=== PATIENT | male | born 1945 | race Caucasian/White ===

== ENCOUNTER 2017-08-20 08:44 | Emergency (ER) | payer MEDICARE, SELFPAY ==
[2017-08-20 09:11] VITALS: BP 161/102; PULSE 98; RESP 16; TEMP 36.6; O2SAT 100
--- NOTE | 2017-08-20 09:19 | DI.RAD.S_ITS ---
PROCEDURE: XR ACUTE ABDOMEN SERIES INDICATIONS: Abdominal pain, decreased BM x2 weeks TECHNIQUE: One view chest and two views of the abdomen were acquired. COMPARISON: None. FINDINGS: Surgical changes and devices: None. Chest: Lungs show mild horizontal atelectasis or scarring at the left base. Heart size is normal. Tortuous aorta. No pleural effusions. No pneumoperitoneum. Abdomen: Bowel gas pattern shows considerable fecal loading in the colon No suspicious calcifications. Visualized solid organ contours appear normal. Bones: No suspicious bony lesions. Small metallic foreign body overlies the right upper abdomen wall. IMPRESSION: 1. Mild atelectasis or scarring left lung base. 2. No bowel obstruction or free air. 3. Probable constipation. Dictated by: Keegan Huntley M.D. on 08/20/2017 at 9:57 Approved by: Keegan Huntley M.D. on 08/20/2017 at 9:59
[2017-08-20 10:15] LABS: Add Manual Diff / Slide Review NO; Basophils Percent Auto 0.6 % (0-2); Eosinophils Percent Auto 0.1 % (2-4); Hematocrit 40.6 % (41-53); Hemoglobin 14.1 g/dL (13.5-17.5); Mean Corpuscular HGB Conc 34.7 % (30-36); Mean Corpuscular Hemoglobin 29.3 PG (26-34); Mean Corpuscular Volume 84.6 fL (80-100); Monocytes Percent Auto 6.6 % (3-14); Neutrophils Absolute Auto 8400 /uL (3000-5900); Neutrophils Percent Auto 85.7 % (50-75); Platelet Count 270 X10^3/uL (150-400); Red Cell Distribution Width 14.4 % (11.6-14.8); White Blood Cell Count 9.8 X10^3/uL (4.5-11.0)
[2017-08-20] MEDS: SODIUM CHLORIDE 0.9% 1,000 ML 150 ML IV (10:19)
--- NOTE | 2017-08-20 10:19 | ED_ITS ---
HPI - Abdominal Pain General Chief Complaint: Abdominal Pain Stated Complaint: 'POSSIBLE BOWEL OBSTRUCTION' Time Seen by Provider: 08/20/17 08:58 Source: patient Mode of arrival: ambulatory Limitations: no limitations History of Present Illness HPI narrative: Patient presents to the emergency department today with a chief complaint of 2 weeks with decreased bowel movements if any at all. He is still passing gas. He admits to nausea and decreased appetite been no persistent vomiting. He admits to crampy abdominal pain and some radiation to his back. He does complain of ongoing back pain for quite some time and denies any specific underlying diagnosis complaint: abdominal pain Onset (ago): week(s) Pain Consistency: constant Location: diffuse Quality: cramping and aching Relieving factors: nothing Exacerbating factors: nothing Associated symptoms: nausea and constipation Related Data Home Medications Medication Instructions Recorded Confirmed Fleet Enema 08/20/17 cyclobenzaprine 10 mg PO TID PRN 08/20/17 08/20/17 prednisone 10 mg PO DAILY 08/20/17 08/20/17 Allergies Allergy/AdvReac Type Severity Reaction Status Date / Time No Known Drug Allergies Allergy Verified 08/20/17 09:15 Review of Systems Review of Systems All systems reviewed & are unremarkable except as noted in HPI and below Constitutional Denies chills, Denies fever(s), Denies lethargy and Denies weakness Eyes Denies change in vision, Denies eye discharge, Denies irritation and Denies loss of vision ENT Ears, Nose, Mouth, and Throat: Denies change in voice, Denies neck pain and Denies sore throat Cardiovascular Denies chest pain, Denies irregular heart rhythm, Denies lightheadedness, Denies palpitations, Denies dyspnea, Denies dyspnea on exertion and Denies orthopnea Respiratory Denies cough, Denies dyspnea, Denies dyspnea on exertion and Denies wheezing Gastrointestinal Gastrointestinal: Reports abdominal pain, Reports bloating, Denies change in bowel habits, Reports constipation, Denies diarrhea, Denies nausea and Denies vomiting Genitourinary Denies hematuria, Denies flank pain, Denies urinary incontinence and Denies urinary urgency Musculoskeletal Reports back pain and Denies neck pain Integumentary/Breasts Denies pruritus, Denies erythema, Denies rash and Denies wounds Neurologic Denies confusion, Denies loss of vision and Denies weakness Psychiatric Denies anxiety, Denies confusion, Denies depression, Denies homicidal ideation and Denies suicidal ideation Endocrine Denies palpitations Hematologic/Lymphatic Denies easy bruising Allergic/Immunologic Denies wheezing PFSH Surgical History H/O hernia repair (Acute) Hx of appendectomy (Acute) Hx of laminectomy (Acute) Social History Smoking Status: Never smoker Exam Initial Vital Signs Initial Vital Signs: Vital Signs Temperature 97.9 F 08/20/17 09:11 Pulse Rate 98 H 08/20/17 09:11 Respiratory Rate 16 08/20/17 09:11 Blood Pressure 161/102 H 08/20/17 09:11 Pulse Oximetry 100 08/20/17 09:11 Const General: cooperative and well developed Nutritional Appearance: well nourished Orientation: alert, awake, oriented x3 and not confused HENMT Head: normocephalic and atraumatic Ears: external ears normal and TM's normal bilaterally Nose: external nose normal and No nasal discharge Face and sinus: sinuses nontender, face symmetric, no sinus tenderness and No dry mucous membranes Mouth: oral mucosae normal and moist mucous membranes Teeth and gingiva: dentition normal Throat: tonsils normal and uvula midline Neck Neck: normal visual inspection, trachea midline, No lymphadenopathy, No midline deformity and No JVD Lymphatic: No lymphedema Resp Effort & Inspection: normal respiratory effort, able to speak in complete sentences, no respiratory distress and no use of accessory muscles Auscultation: clear to auscultation bilaterally, no rales, no rhonchi and no wheezes GI Inspection: distended Palpation: soft and No tender Back/Spine/Pelvis Back: No CVA tenderness Cervical Spine: cervical ROM normal and No pain with cervical ROM Thoracic/Lumbar Spine: thoracic and lumbar spine normal to inspection Neuro General: alert, oriented x3, gait normal and no focal motor deficits Speech: speech normal Course Orders Ordered: ED Orders 08/20/17 09:19 XR acute abdomen series Stat 08/20/17 10:00 Prostate Specific Antigen Stat 08/20/17 10:06 Complete Blood Count AUTO DIFF Stat Comprehensive Metabolic Panel Stat Lipase Stat 08/20/17 11:05 CT chest abd pel w con Stat Discontinued Medications Sodium Chloride (Normal Saline 0.9%) 1,000 mls @ 150 mls/hr IV CONT JOANN Last Infusion: 08/20/17 13:00 Dose: 0 mls/hr Admin: 08/20/17 10:19 Dose: 150 mls/hr Consultations Consultation #1: Called to the NH to secure appropriate follow-up. They told me that given his type of insurance ([employer]) and his distance from the closest NH facility that he can have his evaluation done locally. Consultation #2: Called to on-call oncology at [facility]. They are happy to see patient as an outpatient Vital Signs - 8 hr 08/20/17 09:11 08/20/17 11:14 08/20/17 12:25 Temperature 97.9 F Pulse Rate 98 H 91 H 88 Respiratory Rate 16 18 Blood Pressure 161/102 H Blood Pressure [Right Arm] 143/84 H 156/98 H Pulse Oximetry 100 98 97 MDM - Abdominal Pain Differential Diagnosis Differential diagnosis: Likely abdominal pain, acute appendicitis, calculus of kidney, constipation, gastroenteritis, pancreatitis and small bowel obstruction Medical Records Attestation: I reviewed the patient's medical records. Lab Data Attestation: I reviewed the patient's lab results. Result diagrams: 08/20/17 10:06 08/20/17 10:06 Lab Results 08/20/17 08/20/17 Range/Units 10:06 10:06 WBC 9.8 (4.5-11.0) X10^3/uL RBC 4.80 (4.5-5.9) X10^6/uL Hgb 14.1 (13.5-17.5) g/dL Hct 40.6 L (41-53) % MCV 84.6 (80-100) fL MCH 29.3 (26-34) PG MCHC 34.7 (30-36) % RDW 14.4 (11.6-14.8) % Plt Count 270 (150-400) X10^3/uL Neut % (Auto) 85.7 H (50-75) % Lymph % (Auto) 7.0 L (25-40) % [place] % (Auto) 6.6 (3-14) % Eos % (Auto) 0.1 L (2-4) % Baso % (Auto) 0.6 (0-2) % Neut # (Auto) 8400 H (0204-2131) /uL Sodium 134 L (137-145) mmol/L Potassium 4.5 (3.4-5.1) mmol/L Chloride 98 (98-107) mmol/L Carbon Dioxide 27 (22-32) mmol/L BUN 22 H (9-20) mg/dL Creatinine 1.20 (0.66-1.25) mg/dL Estimated GFR 59.2 L (>60) mL/min BUN/Creatinine Ratio 18.3 (6-22) Glucose 127 H (80-110) mg/dL Calcium 9.4 (8.4-10.2) mg/dL Total Bilirubin 1.3 (0.2-1.3) mg/dL AST 33 (17-59) IU/L ALT 31 (21-72) IU/L Alkaline Phosphatase 320 H (38-126) U/L Total Protein 7.4 (6.3-8.2) g/dL Albumin 4.0 (3.5-5.0) g/dL Globulin 3.4 (1.7-4.1) g/dL Albumin/Globulin Ratio 1.2 (1.0-2.8) Lipase 29 (23-300) U/L Imaging Data Abdominal x-ray: Attestation: I personally reviewed and interpreted this imaging study as follows: My impression: NAP Radiologist's impression: PROCEDURE: XR ACUTE ABDOMEN SERIES INDICATIONS: Abdominal pain, decreased BM x2 weeks TECHNIQUE: One view chest and two views of the abdomen were acquired. COMPARISON: None. FINDINGS: Surgical changes and devices: None. Chest: Lungs show mild horizontal atelectasis or scarring at the left base. Heart size is normal. Tortuous aorta. No pleural effusions. No pneumoperitoneum. Abdomen: Bowel gas pattern shows considerable fecal loading in the colon No suspicious calcifications. Visualized solid organ contours appear normal. Bones: No suspicious bony lesions. Small metallic foreign body overlies the right upper abdomen wall. IMPRESSION: 1. Mild atelectasis or scarring left lung base. 2. No bowel obstruction or free air. 3. Probable constipation. Dictated by: Keegan Huntley M.D. on 08/20/2017 at 9:57 Approved by: Keegan Huntley M.D. on 08/20/2017 at 9:59 CT scan - abdomen: Radiologist's impression: PROCEDURE: CT CHEST ABD PEL W CON INDICATIONS: Chest, abdomen and pelvic pain for a few weeks. Getting worse TECHNIQUE: After the administration of intravenous contrast, 5 mm thick sections acquired from the lung apices to the symphysis. 5 mm coronal and sagittal reformats were performed, with additional 7 mm MIP reformats through the lungs. For radiation dose reduction, the following was used: automated exposure control, adjustment of mA and/or kV according to patient size. COMPARISON: [facility], CT, L-SPINE WITHOUT CONTRAST, 12/27/2014, 9:21. [facility], MR, L-SPINE W&WO CONTRAST, 11/21/2014, 10:05. [facility], CR, XR ACUTE ABDOMEN SERIES, 08/20/2017, 9:01. FINDINGS: Image quality: Excellent. CHEST: Lungs and pleura: Numerous (approximately 70) subcentimeter pulmonary nodules are seen. These can be seen throughout all 5 lobes of the lungs. No areas of acute lung consolidation are seen. Mild dependent atelectasis is seen. There is a trace right-sided pleural effusion. No pneumothorax can be seen. The central airways are patent. Mediastinum: Heart size is normal. No pericardial effusion. Enlarged mediastinal lymph nodes are seen, with the largest solitary lymph node seen within the AP window measuring 2.7 x 1.8 cm in greatest axial dimension. There is an enlarged right perihilar lymph node seen that measures 3 x 1.7 cm. Thoracic aorta and central pulmonary arteries are normal in size. Esophagus is normal in caliber. No significant hiatal hernia. Chest wall: No axillary or supraclavicular adenopathy by size criteria. Thyroid gland demonstrates a 1.3 cm right low-density nodule, as on series 2 image 7. ABDOMEN: Solid organs: Liver is normal in size and enhancement. There is a 12 mm simple liver cyst, as on series 2 image 57. Gallbladder demonstrates no significant CT abnormality. Biliary system is non dilated. Pancreas enhances normally. Spleen is normal in size and enhancement. No adrenal nodules. Kidneys demonstrate normal size and enhancement, without hydronephrosis. Subcentimeter presumed renal cyst are present. Peritoneum and bowel: Bowel loops demonstrate normal wall thickness and caliber. No free fluid or air. Diverticulosis is seen, without findings of active diverticulitis. A moderate amount of stool can be seen within the colon. Nodes and vessels: No retroperitoneal or mesenteric adenopathy by size criteria. Aorta and inferior vena cava are normal in size. Incidental note is made of an accessory left renal artery, inferior to the primary left renal artery. Miscellaneous: No ventral hernias. PELVIS: Genitourinary: Bladder wall thickness is normal. The prostate gland is prominent and irregular and measures 7.2 x 6 cm in greatest axial dimension. Miscellaneous: No enlarged inguinal or pelvic lymph nodes are seen. Mild fat containing inguinal hernias are seen, right more prominent than left. Bones: No areas of lytic and blastic lesions are seen. Several Schmorl's nodes are seen involving the inferior endplates, although most notably at the T9, T11, L2, L3, and L4 levels. Degenerative changes are seen throughout, which are most prominent at the L5-S1 level. Mild levoconvex scoliotic curvature is noted. No acute vertebral body compression fractures. IMPRESSION: Metastatic disease until proven otherwise, with pulmonary soft tissue nodules, enlarged mediastinal and right perihilar lymph nodes, and lytic and blastic bony lesions. A primary mass is not identified. Trace right-sided pleural effusion. A moderate amount of stool is seen within the colon. There is a moderate amount of stool seen within the colon. Please correlate with an underlying history of constipation. 1.3 cm right thyroid nodule. As clinically appropriate, please consider a dedicated thyroid ultrasound for further evaluation. Incidental note is made of: Simple liver cyst Enlarged, irregular prostate Fat containing bilateral inguinal hernias Subcentimeter presumed renal cysts Several Schmorl's nodes Focal L5-S1 degenerative change Levoconvex scoliotic curvature Diverticulosis is seen, without findings of active diverticulitis. Note: Case discussed by telephone with Dr. Betancur at 11:45 AM [place] time on August 20, 2017. Dictated by: Skyler Rice M.D. on 08/20/2017 at 10:16 Approved by: Skyler Rice M.D. on 08/20/2017 at 10:49 Discharge Plan Departure Patient Disposition: Home, Self-Care Clinical Impression: Constipation, Metastasis Discharge Date/Time: 08/20/17 13:03 Interventions: ED Discharge Assessment Last Done: 08/20/17 13:02 Activity Restrictions/Additional Instructions: *You have been diagnosed with [ newly diagnosed metastatic lesions (likely cancer) and constipation ] *What to do: *Take medications as directed *Follow up with oncology at the [facility] next door, they will call for some questions and discussion about follow up *Return to ER if you should have any new, worsening or concerning symptoms 1. Stay active 2. Return to your normal diet as much as possible 3. Stay well hydrated 4. A combination of over the counter laxitives including Dulcolax (stimulant laxative) Magnesium Citrate (pulls water into stool) Colace (stool softener) Prescriptions: No Action cyclobenzaprine 10 mg Tablet 10 mg PO TID PRN (Reason: Back Pain) RF: 0 prednisone 10 mg Tablet 10 mg PO DAILY RF: 0 Fleet Enema RF: 0 Referrals: Judy Garcia ARNP [Advanced Practioner Clinician] - Derik Landis MD [Primary Care Provider] -
[2017-08-20 10:26] LABS: Alanine Aminotransferase 31 IU/L (21-72); Albumin Globulin Ratio 1.2 (1.0-2.8); Alkaline Phosphatase 320 U/L (38-126); Aspartate Aminotransferase 33 IU/L (17-59); BUN Creatinine Ratio 18.3 (6-22); Bilirubin Total 1.3 mg/dL (0.2-1.3); Blood Urea Nitrogen 22 mg/dL (9-20); Calcium 9.4 mg/dL (8.4-10.2); Carbon Dioxide 27 mmol/L (22-32); Chloride 98 mmol/L (98-107); Estimated Glomerular Filt Rate 59.2 mL/min (>60); Globulin 3.4 g/dL (1.7-4.1); Glucose 127 mg/dL (80-110); HEMOLYSIS 15 (0-50); Lipase 29 U/L (23-300); Potassium 4.5 mmol/L (3.4-5.1); Sodium 134 mmol/L (137-145); Total Protein 7.4 g/dL (6.3-8.2)
--- NOTE | 2017-08-20 11:05 | DI.CT.S_ITS ---
PROCEDURE: CT CHEST ABD PEL W CON INDICATIONS: Chest, abdomen and pelvic pain for a few weeks. Getting worse TECHNIQUE: After the administration of intravenous contrast, 5 mm thick sections acquired from the lung apices to the symphysis. 5 mm coronal and sagittal reformats were performed, with additional 7 mm MIP reformats through the lungs. For radiation dose reduction, the following was used: automated exposure control, adjustment of mA and/or kV according to patient size. COMPARISON: [facility], CT, L-SPINE WITHOUT CONTRAST, 12/27/2014, 9:21. [facility], MR, L-SPINE W&WO CONTRAST, 11/21/2014, 10:05. [facility], CR, XR ACUTE ABDOMEN SERIES, 08/20/2017, 9:01. FINDINGS: Image quality: Excellent. CHEST: Lungs and pleura: Numerous (approximately 70) subcentimeter pulmonary nodules are seen. These can be seen throughout all 5 lobes of the lungs. No areas of acute lung consolidation are seen. Mild dependent atelectasis is seen. There is a trace right-sided pleural effusion. No pneumothorax can be seen. The central airways are patent. Mediastinum: Heart size is normal. No pericardial effusion. Enlarged mediastinal lymph nodes are seen, with the largest solitary lymph node seen within the AP window measuring 2.7 x 1.8 cm in greatest axial dimension. There is an enlarged right perihilar lymph node seen that measures 3 x 1.7 cm. Thoracic aorta and central pulmonary arteries are normal in size. Esophagus is normal in caliber. No significant hiatal hernia. Chest wall: No axillary or supraclavicular adenopathy by size criteria. Thyroid gland demonstrates a 1.3 cm right low-density nodule, as on series 2 image 7. ABDOMEN: Solid organs: Liver is normal in size and enhancement. There is a 12 mm simple liver cyst, as on series 2 image 57. Gallbladder demonstrates no significant CT abnormality. Biliary system is non dilated. Pancreas enhances normally. Spleen is normal in size and enhancement. No adrenal nodules. Kidneys demonstrate normal size and enhancement, without hydronephrosis. Subcentimeter presumed renal cyst are present. Peritoneum and bowel: Bowel loops demonstrate normal wall thickness and caliber. No free fluid or air. Diverticulosis is seen, without findings of active diverticulitis. A moderate amount of stool can be seen within the colon. Nodes and vessels: No retroperitoneal or mesenteric adenopathy by size criteria. Aorta and inferior vena cava are normal in size. Incidental note is made of an accessory left renal artery, inferior to the primary left renal artery. Miscellaneous: No ventral hernias. PELVIS: Genitourinary: Bladder wall thickness is normal. The prostate gland is prominent and irregular and measures 7.2 x 6 cm in greatest axial dimension. Miscellaneous: No enlarged inguinal or pelvic lymph nodes are seen. Mild fat containing inguinal hernias are seen, right more prominent than left. Bones: No areas of lytic and blastic lesions are seen. Several Schmorl's nodes are seen involving the inferior endplates, although most notably at the T9, T11, L2, L3, and L4 levels. Degenerative changes are seen throughout, which are most prominent at the L5-S1 level. Mild levoconvex scoliotic curvature is noted. No acute vertebral body compression fractures. IMPRESSION: Metastatic disease until proven otherwise, with pulmonary soft tissue nodules, enlarged mediastinal and right perihilar lymph nodes, and lytic and blastic bony lesions. A primary mass is not identified. Trace right-sided pleural effusion. A moderate amount of stool is seen within the colon. There is a moderate amount of stool seen within the colon. Please correlate with an underlying history of constipation. 1.3 cm right thyroid nodule. As clinically appropriate, please consider a dedicated thyroid ultrasound for further evaluation. Incidental note is made of: Simple liver cyst Enlarged, irregular prostate Fat containing bilateral inguinal hernias Subcentimeter presumed renal cysts Several Schmorl's nodes Focal L5-S1 degenerative change Levoconvex scoliotic curvature Diverticulosis is seen, without findings of active diverticulitis. Note: Case discussed by telephone with Dr. Betancur at 11:45 AM [place] time on August 20, 2017. Dictated by: Skyler Rice M.D. on 08/20/2017 at 10:16 Approved by: Skyler Rice M.D. on 08/20/2017 at 10:49
[2017-08-20 11:14] VITALS: BP 143/84; PULSE 91; O2SAT 98
[2017-08-20 12:25] VITALS: BP 156/98; PULSE 88; RESP 18; O2SAT 97
== END 2017-08-20 13:03 | disposition home or self-care (01) ==
PROVIDERS: Emergency Provider Emergency Medicine; Family Provider Family Medicine; PCP Family Medicine
DX: K59.00 Constipation, unspecified (principal); C79.9 Secondary malignant neoplasm of unspecified site
CPT/HCPCS: 36591; 71260; 74022; 74177; 80053; 81003; 83690; 84153; 85025; 96360; 96361; 99283; 99285; Q9967

== ENCOUNTER → 2017-09-14 09:15 | Outpatient (CLI) | payer OTHER, SELFPAY ==
--- NOTE | 2017-09-14 09:16 | DI.NM.S_ITS ---
PROCEDURE: NM BONE SCAN WHOLE BODY RADIOPHARMACEUTICAL: 21.8 mCi Tc-99m MDP IV. INDICATIONS: METASTATIC LUNG CANCER TECHNIQUE: Delayed whole-body scintigrams were obtained approximately 3-4 hours after intravenous injection of radiotracer. Anterior and posterior views were acquired from vertex to feet. COMPARISON: [facility], MR, L-SPINE W&WO CONTRAST, 11/21/2014, 10:05. [facility], CT, CT CHEST ABD PEL W CON, 08/20/2017, 10:55. FINDINGS: There are innumerable foci of abnormal uptake involving sternum, scapulae bilaterally, cervical, thoracic and lumbar spine, sacrum, multiple ribs bilaterally, bony pelvis bilaterally, proximal humeri and proximal femurs, consistent with osseous metastases. IMPRESSION: 1. Extensive osseous metastatic disease as described. Dictated by: Blanche Calvillo M.D. on 09/14/2017 at 16:38 Approved by: Blanche Calvillo M.D. on 09/14/2017 at 17:48
--- NOTE | 2017-09-17 11:31 | PC.NURSE ---
Received message that pt would like his bone scan results. Reviewed bone scan report which shows extensive osseous metastatic disease. Dr Hope notified of results and appt made for pt to come in on WednesdaySeptember [address] Hope could go over results- however when explaining to patient that I can't give results out over the phone and that he needs to come in to have Dr Hope go over the results, he became very frustrated stating that he lives on [place] and it's a financial strain to keep coming back and forth. Offered to have a phone appt with the patient, in which Dr Hope could call to talk about results with him. He was agreeable to this. Plan is for Dr Hope to call patient with the results some time this weekend.
== END ==
PROVIDERS: Family Provider Family Medicine; PCP Family Medicine; Visit Provider Internal Medicine Hematology & Oncology
DX: C34.91 Malignant neoplasm of unspecified part of right bronchus or lung (principal); C79.51 Secondary malignant neoplasm of bone
CPT/HCPCS: 78306; A9503

== ENCOUNTER → 2017-09-23 09:00 | Oncology outpatient (ONC) | payer OTHER, SELFPAY ==
[2017-08-31 10:31] VITALS: BP 154/94; PULSE 85; RESP 17; TEMP 36.7; O2SAT 95
--- NOTE | 2017-08-31 10:50 | ONC.NAV ---
Description: New Patient Intro Activity: Please also see the completed Psychosocial Assessment. Pt and present today for pt's initial consult visit with Dr. Hope. Prior to his visit today, [place]. He expresses feeling very uncomfortable, with severe back pain, spasms and recent/severe constipation (now resolved). He and his reside on [facility]. SHIFT LAB TECHNICIAN discussed the availability of the [employer] to assist with travel related costs, as well as to assist with the natural medicine regime that he is currently following. Both pt/ feel strongly supported by their prema community, neighbors and friends, and offer no concerns at this time. Pt is following a health care plan as established by a local doctor of [place] medicine, which involves ingesting a significant amount of cannabis oil daily. SHIFT LAB TECHNICIAN explained briefly what to expect with the staging process, and that should they have appointments on multiple days in a week, that the lodging program is available to minimize travel stress. Provided my service card and encouraged them to call anytime they are need of assistance/have questions. Completed a Medical Marijuana Authorization form, as well as the medical priority boarding form- with MD signature during visit today. No further needs identified at this time.
[2017-08-31 11:48] LABS: Lactate Dehydrogenase 398 U/L (313-618)
--- NOTE | 2017-08-31 12:19 | P.CONONC_ITS ---
Diagnosis (1) Pulmonary nodules/lesions, multiple Diagnosis: 08/31/17 12:17 Mr. Villarreal is a very pleasant/soft-spoken 72-year-old male from [facility]. He is accompanied today by his Cyndi. He has been kindly referred by Dr. Betancur for formal triage for what appears to be extensive metastatic disease to his lungs. His attending physician is Derik Landis MD on [facility]. History of Present Illness History Of Present Illness: 08/31/17 1 08/31/17 12:19 This gentleman's present illness began on August 20, when he presented to our local ER department with a chief complaint of 2 weeks of severe constipation. He was noting significant abdominal bloating and secondary discomfort in his upper back area. He denied any nausea or vomiting. He denied any blood in his stool. Subsequent triage included a CT scan of his chest, abdomen and pelvis. It confirmed too numerous to count sub cm pulmonary nodules involving all 5 pulmonary lobes. There was also evidence of multi positional pathologic mediastinal lymphadenopathy. The liver appeared to be fine. No colon masses were seen. There was a very tiny right-sided pleural effusion. The prostate gland was prominent and irregular in shape (measuring 7.2 x 6 cm in diameter). The patient was discharged home with instructions regarding over the counter cathartics. There has been some improvement in his constipation since that visitation. The patient also reports recent decline in his appetite, extending back for at least 4 weeks. He has lost roughly 9 lb during this interval. The patient also acknowledges that he has had intermittent cough since February of last year. This gentleman is about 5 years out from a TURP. He is also about 5 years out from a previous colonoscopy. Home Medications and Allergies Home Medications Medication Instructions Recorded Confirmed Type Fleet Enema MISCELLANEOUS 08/20/17 History cyclobenzaprine 10 mg PO TID PRN 08/20/17 08/31/17 History prednisone 10 mg PO DAILY 08/20/17 08/31/17 History Allergies Allergy/AdvReac Type Severity Reaction Status Date / Time No Known Drug Allergies Allergy Verified 08/20/17 09:15 Past History Past Medical History: Previous left inguinal hernia repair, umbilical hernia repair, appendectomy, and an L5 laminectomy, to repair a blown disc. History of mild hypertension. Social History: Mr. 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 He and his left [facility] in 2001, moving to [facility], where they now reside in his parents prior home. He and his have 2 grown children, 1 son and 1 daughter. Family History: Both parents are . His mother succumbed to metastatic breast cancer, at age 68. His father of natural causes at age 88. He did suffer from dementia at the time of his . One sister is , at age 64. She apparently had a rare tumor involving her gastric side wall (? GIST tumor). Review of Systems Review of Systems: 1. General. Significant diminution in appetite over the past 4+ weeks. Weight has dropped from 210 lb to 201 lb today. He denies any recent fever, chills or night sweats. 2. HEENT. Bilateral hearing aids. 3. Lungs. Refractory cough, for at least the past 5-6 months. Cough over has unequivocally improved recently. He denies any dyspnea. 4. Heart. Unremarkable. 5. GI. No history of peptic ulcer disease, hepatitis or gallbladder disease. Recent constipation (as noted above). His last colonoscopy was reportedly about 5 years ago. 6. . Minimal difficulty with urinary hesitancy and frequency. No dysuria. No blood in his urine. 7. Rheumatologic. Minimal arthritis. 8. Endocrine. No history of thyroid disease or diabetes. 9. Skin. History of multiple basal cell carcinomas. 10. Neurologic. No history of stroke or seizure activity. Exam Vital Signs: Vital Signs - 24 hr 08/31/17 10:31 Temperature 98.1 F Pulse Rate 85 Respiratory Rate 17 Blood Pressure 154/94 H Pulse Oximetry 95 Exam: Blood pressure 154/94. Temperature 98.1?. Pulse rate 85. O2 saturation on room air was 95%. Weight 201 lb. This gentleman did displayed an intermittent cough. The oropharynx was clear. Teeth were in excellent repair. There was no scleral icterus. There was no direct percussible spinal tenderness. There was no palpable rib cage tenderness. Both lungs were clear to auscultation and percussion. No pathologic lymphadenopathy was noted today in the pre or post auricular, neck, supraclavicular, right axillary, epitrochlear or inguinal areas. There was a palpable 8-10 mm firm/solitary lymph node in the left axilla. Heart sounds were fine. His abdomen was soft, nontender and without palpable mass effect nor hepatomegaly. There was trace bilateral pretibial edema. Skin examination was unremarkable. Results - Labs Laboratory Last Values Lactate Dehydrogenase 398 U/L ([id number]) 08/31/17 11:[address] gentleman's CT scan suggest extensive metastatic disease, unknown primary. I would make note of his PSA level of 6,840. A formal urologic consultation is warranted, to hopefully include prostatic biopsies. Because of this gentleman's recent/severe constipation, a repeat colonoscopy is also warranted. Additional blood work was procured today, including a follow-up PSA level, LDH and CEA level. In view of the elevated alkaline phosphatase level, a baseline bone scan is also warranted. I did notify this gentleman's attending physician the of the ongoing triage. I will be back in touch with this gentleman when the above tests and procedures are completed.
[2017-08-31 12:37] LABS: Carcinoembryonic Antigen 0.9 ng/mL (0.1-3.0)
--- NOTE | 2017-09-02 16:50 | PC.NURSE ---
Dr Sykes's office called [facility] MASTERS - Dr Cortes does not feel prostate biopsy is warranted given CT results and grossly elevated PSA . 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
--- NOTE | 2017-09-23 08:50 | PM.CHEMOCOU ---
Chemotherapy Counseling - History of present illness History of present illness: Melanie is a 72-year-old man who initially presented from the emergency department for metastatic disease, unknown primary. Patient was evaluated by Dr. Hope August 31 who reviewed imaging, labs etc. Imaging identified extensive metastatic disease, unknown primary. Patient did have greatly elevated PSA at over 6000. Urology consult has been scheduled specifically for prostate biopsies. Colonoscopy is warranted as well. We are moving forward with the likely etiology of metastatic prostate cancer, chemotherapy in the form of docetaxel. Pt has no complaints on exam today. he is here with his Cyndi. Melanie presented to the emergency department with severe constipation. Today Melanie informs me he is following a chemotherapy treatment with high dose marijuana with alternative provider on [facility]. Per he and his His PSA is already down drasticaly. Pt and go on to report we have no interest in receiving chemotherapy here. I asked Melanie if he had been scheduled yet for colonoscopy or prostate biopsy he replied I dont need that done you guys are just trying to fill the pockets of your colleagues. I went on to explain the purpose of the biopsies is to identify the primary cancer also to inspect molecular and genetic aspects of this cancer so we may initiate I highly targeted, specific chemotherapy. Additionally, the hormone receptors of his cancer will guide treatment as well. All of this information is obtained through biopsy. Pt still declined. I briefly described his chemotherapy regimen with Taxotere infusion every 21 days, indefinitely. Intent is to palliate, unfortunately cancer not curable. Patient and his disagree, they believe he will be cured on this alternative regimen. I then showed them all the information in the booklet, the information I would like for them to read. If at any time they wish to return and initiate chemotherapy I am more than happy to see them for another more in-depth chemotherapy teaching. - General New Chemotherapy Patient: Yes Treatment Plan Reviewed: docetaxel - Chemotherapy Counseling Chemotherapy Counseling: Chemotherapy Education: Melanie Villarreal provided written information on all topics discussed. Written materials printed from www.[facility].com and www.[facility].org. Melanie was given an overview of cancer and mechanism of action of cancer cells, that cancer is caused by cells that are dividing rapidly, and out of control. Traditional chemotherapy works by targeting the fast dividing cells and killing them. Chemotherapy affecting healthy cells dividing quickly causes many of the side effects (hair follicles, bone marrow, mucus membranes). Overview of blood cell functions of white cells to fight infection, red cells to carry oxygen, and platelets to stop bleeding was discussed, and that when bone marrow is affected by chemo, there is a decrease in production of these cells. Home care of the patient following chemotherapy was discussed. Body fluids will be contaminated for 48 hours following treatment, and any body fluids handled by caregivers should be handled wearing gloves, surfaces need to be cleaned with soap and water, any soiled linens or clothing need to be washed separately in hot water, toilet lid should be closed when flushing, person cleaning the toilet should wear gloves. How chemotherapy is administered by the RN?s in the clinic, that orders are double checked by pharmacy and checked again by two RN?s prior to administration. Nurses wear protective gear to prevent exposure to them of the chemotherapy agents which can also cause cancer. Cancer center information discussed and written hand out provided listing on-call oncologist available weekends and after hours triage R.N. hours and infusion room guide. New patient binder given to Melanie, which includes clinic names, phone numbers, clinic information, calendar, cancer glossary, and list of resources. Handout on advanced directives Common side effects of chemotherapy were discussed with self care tips for prevention of complications. Information also provided in writing. These included: Low blood counts (anemia, thrombocytopenia, neutropenia) Hair loss (alopecia) Nausea and vomiting Decreased appetite Loss of fertility Diarrhea Mouth sores Constipation Peripheral neuropathy Chemo brain/cognitive changes Fatigue Instructions on when to call your healthcare team or on-call physician immediately: Fever of 100.4 or higher, chills, any signs of infection Shortness of breath, wheezing, difficulty breathing, closing of throat, swelling of face, hives (signs of possible allergic reaction) Chest pain, fast heart beat or feelings of a different heart rhythm Swelling of an extremity with or without pain signs of stroke Instructions on when to call your healthcare team within the next 24 hours Nausea that interferes with ability to eat and unrelieved with prescribed medication Diarrhea (4-6 episodes in 24 hour period). Unusual bleeding or bruising Black or tarry stools, or blood in your stools Blood in the urine pain or burning with urination Extreme fatigue (unable to perform self-care activities) Mouth sores or sore areas in your mouth Bad headache Dizziness or lightheadedness Large weight gain over a short period of time General self-care tips while undergoing treatment discussed were as follows. Written materials were provided covering in detail and additional self care tips. Drink at least 2-3 quarts (8-10 glasses) of no-caffeinated beverages daily unless you are instructed otherwise and empty your bladder frequently Report any concerning symptoms to your healthcare team Avoid crowds and sick people, wash your hands frequently Use a soft bristled toothbrush, rinse three times a day with 1 tsp baking soda or 1 tsp salt mixed with warm water Avoid any mouthwashes or oral and skin products containing alcohol or fragrances Use electric razors to avoid cutting yourself Avoid contact sports or activities that could cause head injury or bleeding Avoid sun exposure, wear SPF 15 or higher, wear protective clothing Get plenty of rest, meter your activities Maintain good nutrition Avoid alcoholic beverages Attend your scheduled appointments and lab draws Treatment regimen reviewed and medications were discussed with attention to specific side effects and self care for the pt?s treatment regimen which includes [docetaxel]. Melanie was provided with literature regarding [docetaxel] and common side effects. Additionally, Melanie was provided with literature regarding the diagnosis of [metastatic prostate cancer]. Melanie instructed to read literature at home. Keep a list of questions which we are happy to go over at future visits. For any urgent questions please feel free to call any time. 30 mins spent face to face counseling, 10 mins prior reading notes imaging labs etc. 5 mins in dictation. - Response to Teaching Response to Teaching: Reinforcement Needed
== END ==
PROVIDERS: Family Provider Family Medicine; PCP Family Medicine; Visit Provider Internal Medicine Hematology & Oncology
DX: C79.9 Secondary malignant neoplasm of unspecified site (principal); C80.1 Malignant (primary) neoplasm, unspecified; R91.1 Solitary pulmonary nodule
CPT/HCPCS: 36415; 82378; 83615; 84153; 99205; 99215

== ENCOUNTER → 2017-11-10 10:21 | Outpatient (CLI) | payer OTHER, SELFPAY ==
--- NOTE | 2017-11-10 | DI.CT.S_ITS ---
PROCEDURE: CT CHEST ABD PEL W CON INDICATIONS: FOLLOW UP POST TREATMENT TECHNIQUE: After the administration of oral and intravenous contrast, 5 mm thick sections acquired from the lung apices to the symphysis. 5 mm coronal and sagittal reformats were performed, with additional 7 mm coronal MIP reformats through the lungs. For radiation dose reduction, the following was used: automated exposure control, adjustment of mA and/or kV according to patient size. COMPARISON: [facility], CT, CT CHEST ABD PEL W CON, 08/20/2017, 10:55. FINDINGS: Image quality: Excellent. CHEST: Lungs and pleura: Innumerable pulmonary nodules throughout both lungs which are more numerous and some of which have enlarged since the previous study (for example a right lung nodule on im 3 se 37 measures 9 mm today increased from 6 mm previously). Central and peripheral airways appear patent and normal in caliber. Mediastinum: Enlarging mediastinal and hilar lymphadenopathy. The esophagus is grossly normal. Normal heart size. Chest wall: No axillary or supraclavicular adenopathy by size criteria. Thyroid gland demonstrates a stable 15 mm right thyroid nodule. Height loss in the T8 and T9 vertebral bodies. ABDOMEN: Solid organs: Low-density hepatic nodules most consistent with simple cysts stable since the previous study. Normal gallbladder. Stable low-density pancreatic tail 21 mm nodule. Stable low-density anterior margin of the spleen likely represents a benign cyst. Tumor involvement or previous infarction are less likely. Adrenal glands and kidneys are radiographically normal. Peritoneum and bowel: Bowel loops demonstrate normal wall thickness and caliber. No free fluid or air. Diverticulosis with no evidence of acute diverticulitis. Nodes and vessels: No retroperitoneal or mesenteric adenopathy by size criteria. Aorta and inferior vena cava are normal in size. Miscellaneous: No ventral hernias. PELVIS: Genitourinary: Bladder wall thickness is increased. Severe prostatic hypertrophy. Miscellaneous: Bilateral fat containing inguinal hernias. Bones: Interval progression of diffuse osseous metastasis. Stable L3 vertebral body height loss. IMPRESSION: 1. Progression of diffuse osseous metastasis, mediastinal lymphadenopathy, and pulmonary nodules. 2. New mild T8 and T9 vertebral body height loss with no radiographic evidence of retropulsed fragments. Dictated by: Elia Holden M.D. on 11/10/2017 at 11:52 Approved by: Elia Holden M.D. on 11/10/2017 at 12:08
== END ==
PROVIDERS: Family Provider Family Medicine; PCP Family Medicine; Visit Provider Family Medicine
DX: C79.51 Secondary malignant neoplasm of bone (principal)
CPT/HCPCS: 71260; 74177; Q9967

== ENCOUNTER 2020-03-18 18:13 | Emergency (ER) | payer MEDICARE, SELFPAY ==
[2020-03-18 18:34] VITALS: BP 215/111; PULSE 69; RESP 16; TEMP 36.4; O2SAT 96; BMI 29.2
--- NOTE | 2020-03-18 19:33 | DI.RAD.S_ITS ---
PROCEDURE: XR CHEST 1V INDICATIONS: chest pain TECHNIQUE: One view of the chest was acquired. COMPARISON: None. FINDINGS: Surgical changes and devices: None. Lungs and pleura: Lungs are clear. No pleural effusions or pneumothorax. Mediastinum: Mediastinal contours appear normal. Heart size is normal. Bones and chest wall: No suspicious bony lesions. Overlying soft tissues appear unremarkable. IMPRESSION: 1. No acute cardiopulmonary disease. Dictated by: Phoenix Weeks M.D. on 03/18/2020 at 20:08 Approved by: Phoenix Weeks M.D. on 03/18/2020 at 20:08
--- NOTE | 2020-03-18 19:54 | ED_ITS ---
HPI - General Adult General Chief complaint: Hypertension Stated complaint: HTN Time Seen by Provider: 03/18/20 19:53 Source: patient Mode of arrival: Ambulatory Limitations: no limitations History of Present Illness HPI narrative: 75-year-old male. Has a history of prostate cancer. Is not currently undergoing treatment for this. Also has had a history of high blood pressure. Has been on medications in the past but is not currently taking medications. States that he took his blood pressure this morning was elevated. It remained elevated throughout the day. Has had headache for the past hour. Went to the [facility] for the symptoms and had an EKG performed there that was reported to be abnormal was sent to the emergency department for further evaluation. Denies any chest pain or shortness of breath. No vision changes. He states he has had kidney issues in the past around the time when he is being treated for prostate cancer. He does not know if his kidney function of return to normal. Related Data Home Medications Medication Instructions Recorded Confirmed Fleet Enema MISCELLANEOUS 08/20/17 cyclobenzaprine 10 mg PO TID PRN 08/20/17 08/31/17 prednisone 10 mg PO DAILY 08/20/17 08/31/17 Previous Rx's Medication Instructions Recorded ondansetron [Zofran ODT] 4 mg PO Q6-8H PRN #30 tab 09/23/17 prednisone 5 mg PO BID #120 tab 09/23/17 Allergies Allergy/AdvReac Type Severity Reaction Status Date / Time No Known Drug Allergies Allergy Verified 03/18/20 18:39 Review of Systems Constitutional Constitutional: Denies fever(s) and Reports headache(s) Eyes Eyes: Denies change in vision ENT Ears, Nose, Mouth, and Throat: Reports headache(s) Cardiovascular Cardiovascular: Denies chest pain and Denies dyspnea Respiratory Respiratory: Denies dyspnea Gastrointestinal Gastrointestinal: Denies abdominal pain, Denies nausea and Denies vomiting Genitourinary Genitourinary: Denies hematuria and Denies dysuria Genitourinary: Denies hematuria and Denies dysuria Musculoskeletal Musculoskeletal: Denies arthralgias and Denies myalgias Integumentary/Breasts Skin/Breast: Denies lesions and Denies rash Neurologic Neurologic: Denies behavioral changes, Denies confusion and Reports headache(s) Psychiatric Psychiatric: Denies behavioral changes and Denies confusion Hematologic/Lymphatic Hematologic/Lymphatic: Denies easy bleeding and Denies easy bruising Allergic/Immunologic Allergic/Immunologic: Denies urticaria Patient History Medical History Hypertension Prostate cancer Pulmonary nodules/lesions, multiple Surgical History (Updated 08/31/17 @ 12:39 by Ran Hope MD) H/O hernia repair Hx of appendectomy Hx of laminectomy Social History Smoking Status: Never smoker Smoking Status: Never smoker alcohol intake frequency: 0-2 drinks per day Substance Use Type: does not use Exam Initial Vital Signs Initial Vital Signs: Vital Signs Temperature 97.6 F 03/18/20 18:34 Pulse Rate 69 03/18/20 18:34 Respiratory Rate 16 03/18/20 18:34 Blood Pressure 215/111 H 03/18/20 18:34 Pulse Oximetry 96 03/18/20 18:34 Const General: cooperative, comfortable and well developed Limitations: mental status not altered HENMT Head: normal to inspection and normocephalic Resp Effort & Inspection: normal respiratory effort Auscultation: clear to auscultation bilaterally Cardio Rate: regular rate Rhythm: regular rhythm GI Inspection: non-distended Palpation: soft Skin Lesions: no lesions Rashes: no rashes Neuro General: patient alert, patient awake and patient oriented x3 Cognition: normal cognition Speech: speech normal Extrem General: normal to inspection and capillary refill normal Psych Appearance: grossly normal and well kempt Scores GCS Francis coma scale eye opening: Spontaneous [place] coma scale verbal response: Orientated Francis coma scale motor response: Obey commands [place] coma scale total score: 15 Course Orders Ordered: ED Orders 03/18/20 20:03 Basic Metabolic Panel Stat Vital Signs Vital signs: Vital Signs - 8 hr 03/18/20 18:34 Temperature 97.6 F Pulse Rate 69 Respiratory Rate 16 Blood Pressure 215/111 H Pulse Oximetry 96 Medical Decision Making Lab Data Lab results reviewed: Yes I reviewed the patient's lab results. Result diagrams: 03/18/20 20:03 03/18/20 20:03 Labs: Lab Results 03/18/20 Range/Units 20:03 Sodium 140 (137-145) mmol/L Potassium 3.7 (3.4-5.1) mmol/L Chloride 109 H (98-107) mmol/L Carbon Dioxide 26 (22-32) mmol/L BUN 27 H (9-20) mg/dL Creatinine 1.15 (0.66-1.25) mg/dL Estimated GFR > 60.0 (>60) mL/min BUN/Creatinine Ratio 23.5 H (6-22) Glucose 108 (80-110) mg/dL Calcium 9.4 (8.4-10.2) mg/dL Imaging Data Chest x-ray: Radiologist's Impression: [address] [id number] ReportSigned Patient: Vishal Villarreal CMR#: [id number]: [id number]:[id number]/Sex: 75 / MDate of Service: 03/18/20Loc: EDAccession Number: [id number] Procedure: XR chest 1V Ordering Provider: Warren Mclain D.O. PROCEDURE: XR CHEST 1V INDICATIONS: chest pain TECHNIQUE: One view of the chest was acquired. COMPARISON: None. FINDINGS: Surgical changes and devices: None. Lungs and pleura: Lungs are clear. No pleural effusions or pneumothorax. Mediastinum: Mediastinal contours appear normal. Heart size is normal. Bones and chest wall: No suspicious bony lesions. Overlying soft tissues appear unremarkable. IMPRESSION: 1. No acute cardiopulmonary disease. Dictated by: Phoenix Weeks M.D. on 03/18/2020 at 20:08 Approved by: Phoenix Weeks M.D. on 03/18/2020 at 20:08 ECG Data Attestation: I personally reviewed and interpreted this ECG as follows: Prior ECG tracings: available for review Interpretation: Sinus rhythm First-degree AV block with ID interval 226 milliseconds Ventricular rate of 58 Normal axis Normal QRS Normal QTC No ST T wave changes MDM Narrative Medical decision making narrative: Patient is hypertensive upon arrival. He did receive lisinopril prior to coming to the emergency department by his primary doctor's office however he does not feel that this is improved his blood pressure. He has been on lisinopril in the past but came off of the because he states he was having a cough. After he came off of it he thought that his blood pressure remained low so he never started back on any medications. He has a prescription for a angiotensin receptor farida that was given to him today that he is supposed to start taking tomorrow. Review the EKG performed at his primary doctor's office shows the abnormality to be a 1st degree AV block. His EKG today shows no signs of ischemia and is unchanged from the EKG prior to today. His kidney function is unremarkable. He is having no chest pain. No shortness of breath. No indication for heart failure. No indication for ACS. Low suspicion for intracerebral hemorrhage. I did discuss with him and his regarding blood pressure. I do not feel the indication to emergently lower his blood pressure here in the ER as I do not know what his baseline blood pressure is. He already is scheduled to start taking a new blood pressure medication tomorrow and I feel given his current presentation today that that is more reasonable for him. We did discuss the importance of him taking his blood pressure at home and how to do this properly. He was given strict return precautions and follow-up instructions. He expressed understanding and agreement. Discharge Plan Departure Patient Disposition: Home Clinical Impression: Hypertension Instructions: DI for High Blood Pressure Activity Restrictions/Additional Instructions: Take the medications as directed. I also recommend that you take your blood pressure at home like we discussed. Return to the emergency department for any new or worsening symptoms Prescriptions: No Action cyclobenzaprine 10 mg Tablet 10 mg PO TID PRN (Reason: Back Pain) RF: 0 prednisone 10 mg Tablet 10 mg PO DAILY RF: 0 Fleet Enema enema miscellaneous RF: 0 prednisone 5 mg Tablet 5 mg PO BID Qty: 120 RF: 0 ondansetron [Zofran ODT] 4 mg Tablet,Disintegrating 4 mg PO Q6-8H PRN (Reason: chemotherapy induced nausea) Qty: 30 RF: 0 Referrals: Derik Landis MD [Primary Care Provider] -
[2020-03-18 20:26] LABS: BUN Creatinine Ratio 23.5 (6-22); Blood Urea Nitrogen 27 mg/dL (9-20); Calcium 9.4 mg/dL (8.4-10.2); Carbon Dioxide 26 mmol/L (22-32); Chloride 109 mmol/L (98-107); Estimated Glomerular Filt Rate > 60.0 mL/min (>60); Glucose 108 mg/dL (80-110); HEMOLYSIS 15 (0-50); Potassium 3.7 mmol/L (3.4-5.1); Sodium 140 mmol/L (137-145)
[2020-03-18 20:43] VITALS: BP 192/105; PULSE 60; O2SAT 98
== END 2020-03-18 21:15 | disposition home or self-care (01) ==
PROVIDERS: Emergency Provider Emergency Medicine; Family Provider Family Medicine; PCP Family Medicine
DX: I10 Essential (primary) hypertension (principal); R07.9 Chest pain, unspecified; C61 Malignant neoplasm of prostate; R51.9 Headache, unspecified
CPT/HCPCS: 36415; 71045; 80048; 93005; 99284

== ENCOUNTER → 2023-04-06 13:53 | Outpatient (CLI) | payer OTHER, MEDICARE, SELFPAY ==
--- NOTE | 2023-04-06 13:57 | DI.MRI.S_ITS ---
PROCEDURE: MR LUMBAR SPINE WO/W CON INDICATIONS: Secondary malignant neoplasm of bone TECHNIQUE: Noncontrast sagittal T1 spin echo and T2 fast spin echo, sagittal STIR, axial T1 and T2 fast spin echo through the lumbar spine. In cases with scoliosis, additional coronal T2 fast spin echo may be performed. After the administration of contrast, sagittal and axial T1 spin echo with fat saturation through the lumbar spine. COMPARISON: [facility], MR, L-SPINE W&WO CONTRAST, 11/21/2014, 10:05. [facility], MR, MR THORACIC SPINE WO/W CON, 04/06/2023, 14:17. [facility], CT, CT ABDOMEN PELVIS WITH CONTRAST, 01/05/2023, 10:39. [facility], NM, NM BONE SCAN WHOLE BODY, 09/07/2022, 14:11. FINDINGS: Image quality: Excellent. Alignment and curvature: There is minimal retrolisthesis seen at the L5-S1 level. Marrow: Extensive bony metastatic disease can be seen, with foci of decreased T1 weighted signal and increased STIR signal, with increased enhancement within each visualized bone. Mild central compression deformities can be seen at T12, L1, L2, L3, and L4. Spinal cord: Conus medullaris terminates at the T12-L1 level. Visualized spinal cord demonstrates normal signal, without suspicious enhancement. Paraspinous soft tissues: No paravertebral masses or abnormal enhancement. Moderate atrophy can be seen of the right kidney. T12-L1: Normal appearance. L1-L2: No significant abnormality is seen. L2-L3: The disc height and disk signal are relatively well-preserved. Moderate generalized disc bulge is seen. Mild facet joint hypertrophy is seen. Moderate bilateral neural foraminal narrowing is seen. Moderate central canal narrowing is seen. L3-L4: The disc height and disk signal are relatively well-preserved. Moderate generalized disc bulge is seen. Mild facet joint hypertrophy is seen. Mild bilateral neural foraminal narrowing is seen. Moderate central canal narrowing is seen. L4-L5: Mild loss of disc height is seen. Loss of disc signal is seen. Moderate generalized disc bulge is seen. There is a superimposed central disc protrusion. There is a focal annular fissure seen posteriorly. Moderate facet joint hypertrophy is seen. There is moderate right-sided and moderate to severe left-sided neural foraminal narrowing. There is a degree of compression seen upon the exiting left L4 nerve root. Prior postoperative change can be seen, with right hemilaminectomy. Moderate central canal narrowing is seen. L5-S1: At least moderate loss of disc height and disc signal can be seen. Moderate disc bulge is seen, with a central disc protrusion. There is a focal annular fissure seen posteriorly. Mild to moderate facet hypertrophy is seen. There is moderate to severe bilateral neural foraminal narrowing seen, with an associated a degree of compression seen upon the exiting nerve roots. At least moderate central canal narrowing is seen. IMPRESSION: Extensive bony metastatic disease can be seen, which is overall better demonstrated on the prior nuclear medicine bone scan. Multiple sites of mild central compression deformity can be seen, which are attributed to pathologic fractures. Multiple levels of significant lumbar spine degenerative change can be seen, which are worst inferiorly and have progressed compared to 2015. Additional findings: Moderate atrophy of the right kidney. Dictated by: Skyler Rice M.D. on 04/06/2023 at 16:29 Approved by: Skyler Rice M.D. on 04/06/2023 at 16:33
--- NOTE | 2023-04-06 13:57 | DI.MRI.S_ITS ---
PROCEDURE: MR THORACIC SPINE WO/W CON INDICATIONS: Secondary malignant neoplasm of bone TECHNIQUE: Noncontrast sagittal T1 spin echo and T2 fast spin echo, sagittal STIR, axial T1 and T2 fast spin echo through the thoracic spine. After the administration of contrast, axial and sagittal T1 spin echo with fat saturation through the thoracic spine. COMPARISON: [facility], , MR LUMBAR SPINE WO/W CON, 04/06/2023, 14:17. [facility], MD, NM BONE SCAN WHOLE BODY, 09/07/2022, 14:11. FINDINGS: Image quality: Excellent. Alignment and curvature: There is normal bony alignment. Marrow: Widespread foci of bony metastatic disease can be seen involving each visualized bone, with decreased T1 weighted signal, increased STIR signal, and increased enhancement. There are compression deformities seen involving T4, T7, T8, and T9. There is minimal posterior bowing of the cortex at T8 and T9. Spinal cord: Visualized spinal cord is of normal signal and size, without abnormal enhancement. Paraspinous soft tissues: No paravertebral masses or abnormal enhancement. A soft tissue lipoma can be seen involving the right inferior neck, as on series 10, image 1, measuring 4 cm. Miscellaneous: Mild central canal narrowing is seen at the T4-T5 level, with a central disc protrusion. Mild mass effect can be seen upon the ventral spinal cord at this level. Mild central canal narrowing can be seen at the T8 and T9 levels. Several levels of moderate neural foraminal narrowing can be seen involving the mid to lower thoracic spine. IMPRESSION: Extensive bony metastatic disease can be seen. This is overall better appreciated on the prior bone scan. Compression deformities can be seen at several levels, which are attributed to pathologic fractures. Central canal narrowing can be seen at T4-T5, T8, and T9. Dictated by: Skyler Rice M.D. on 04/06/2023 at 16:21 Approved by: Skyler Rice M.D. on 04/06/2023 at 16:27
== END ==
PROVIDERS: Family Provider Family Medicine; PCP Family Medicine; Referring Provider Internal Medicine Hematology & Oncology; Visit Provider Internal Medicine Hematology & Oncology
DX: C79.51 Secondary malignant neoplasm of bone (principal); C80.1 Malignant (primary) neoplasm, unspecified; M84.58XA Pathological fracture in neoplastic disease, other specified site, initial encounter for fracture; M48.04 Spinal stenosis, thoracic region
CPT/HCPCS: 72157; 72158; A9579

== ENCOUNTER 2023-10-05 19:47 | Emergency (ER) | payer OTHER, MEDICARE, SELFPAY ==
[2023-10-05 19:45] VITALS: BP 140/65; PULSE 78; RESP 18; TEMP 36.2; O2SAT 98
--- NOTE | 2023-10-05 20:00 | PC.NURSE ---
harrison was attempted with a 16 fr, regular harrison, then a 18 fr coude and a 14 fr coude without success
--- NOTE | 2023-10-05 20:07 | ED_ITS ---
HPI - General Adult General Chief complaint: Urogenital-Male Stated complaint: Urinary retention Time Seen by Provider: 10/05/23 19:50 History of Present Illness HPI narrative: 78-year-old male with history of prostate cancer, recently on hospice service, no active treatment, has had difficulty with urination today, hospitalist nurse on [facility] was unable to pass catheter, transported here for possible catheter placement. Lower abdominal discomfort. No fevers or chills. No flank pain. No nausea or vomiting. While in the helicopter over from [facility] he did have some urinary dribbling. Decreased suprapubic area discomfort. Still has sensation that he can not completely empty his bladder. No fevers or chills. No flank pain. Related Data Previous Rx's Medication Instructions Recorded azithromycin 250 mg tablet See Rx Instructions PO .COMPLEX #6 01/28/22 (Zithromax Z-Milton) tabs guaifenesin 600 mg tablet, 1,200 mg (2 x 600 mg) PO BID #30 01/28/22 extended release 12 hr tabs Allergies Allergy/AdvReac Type Severity Reaction Status Date / Time No Known Drug Allergies Allergy Verified 03/18/20 18:39 Review of Systems Review of Systems Narrative: per HPI Patient History Medical History (Updated 10/06/23 @ 04:23 by Zachariah Jones MD) Bladder neck contracture Decreased urine output Difficult Brooks catheter placement Prostate cancer metastatic to bone Basal cell carcinoma Prostate cancer Hypertension Well adult exam Prostate cancer Hypertension Pulmonary nodules/lesions, multiple Surgical History (Updated 08/31/17 @ 12:39 by Ran Hope MD) H/O hernia repair Hx of laminectomy Hx of appendectomy Family History (Updated 03/21/21 @ 14:11 by Scott Kebede DO) Mother Cancer Father Dementia Social History Smoking Status: Never smoker Smoking Status: Never smoker alcohol intake frequency: 0-2 drinks per day Substance Use Type: does not use Exam Narrative Exam Narrative: GENERAL: Well-developed patient, in mild distress. HEAD: Atraumatic. Normocephalic. EYES: Pupils equal round and reactive. Extraocular motions intact. No scleral icterus. No injection or drainage. ENT: Nose without bleeding, purulent drainage. Throat without erythema, tonsillar hypertrophy or exudate. Airway patent. NECK: Trachea midline. Non tender CARDIOVASCULAR: Regular rate and rhythm without murmurs, gallops, or rubs. RESPIRATORY: Clear to auscultation. Breath sounds equal bilaterally. No wheezes, rales, or rhonchi. GASTROINTESTINAL: Abdomen with some suprapubic mild tenderness. No significant distention no guarding or rebound tenderness. Normal bowel tones. EXTREMITIES: No edema or joint tenderness. BACK: Nontender without deformity or crepitance. No flank tenderness. NEURO: AOx3. Grossly nonfocal neuro exam. SKIN: No rash or erythema of visible areas Initial Vital Signs Initial Vital Signs: Vital Signs Temperature 97.1 F L 10/05/23 19:45 Pulse Rate 78 10/05/23 19:45 Respiratory Rate 18 10/05/23 19:45 Blood Pressure 140/65 10/05/23 19:45 Pulse Oximetry 98 10/05/23 19:45 Oxygen Delivery Method Room Air 10/05/23 19:45 Course Orders Ordered: Discontinued Medications Lidocaine HCl (Lidocaine 2% (Glydo) 6 Ml Gel) 6 ml TOP NOW ONE Stop: 10/05/23 19:52 Last Admin: 10/05/23 20:32 Dose: 6 ml Documented By: MARTY Lidocaine HCl (Lidocaine 2% (Glydo) 6 Ml Gel) 6 ml TOP NOW ONE Stop: 10/05/23 20:38 Last Admin: 10/05/23 20:55 Dose: 6 ml Documented By: MARTY Lidocaine HCl (Lidocaine 2% (Glydo) 6 Ml Gel) 18 ml TOP NOW ONE Stop: 10/05/23 23:04 Last Admin: 10/06/23 00:36 Dose: 12 ml Documented By: MARTY Vital Signs Vital signs: Vital Signs - 8 hr 10/05/23 19:45 Temperature 97.1 F L Pulse Rate 78 Respiratory Rate 18 Blood Pressure 140/65 Pulse Oximetry 98 Oxygen Delivery Method Room Air Medical Decision Making MDM Narrative Medical decision making narrative: 78-year-old male with prostate cancer, flown from [facility] for urinary retention symptoms, unable to pass catheter by hospitalist nurse on [place], here for possible catheter placement, attempted Brooks then coude catheter unsuccessful 14 Nepalese coude, some blood. We will obtain bladder scan to look for volume. Consider urology consult. Bladder scan post catheter attempts with 370 mL postvoid residual. We will consult Urology Dr. Lester on-call Dr. Lester spoke with nursing for further details of what had been tried, he will come in to see patient. Dr. Lester consulted and was able to place a urinary catheter with guidewire assisted placement, with successful drainage of the bladder. Patient will be discharged home. Patient will be discharged to [facility] when [place] is available, he is unable to sit upright. We will need ambulance transportation. 0600, ground ambulance transportation back to his home residence [facility], as he is unable to sit up. Follow up with Urology, follow up with [facility] and with hospice care providers. Discharge Plan Departure Patient Disposition: Home Clinical Impression: Acute urinary retention, History of prostate cancer Activity Restrictions/Additional Instructions: History of prostate cancer, recently enrolled with hospice services, unfortunately today at home [facility] had increasing urinary retention symptoms, hospice nurse unable to pass Brooks catheter, sent here by air ambulance for decompression bladder. ED nursing attempts with regular 18 Nepalese size Brooks catheter, then 18 Nepalese sized coude catheter, smaller sized coude catheter were all unsuccessful. Local urologist Dr. Lester came to the emergency to prior in place urinary catheter. Patient improved. Leave catheter in place. EMS transport back to [facility] home, as patient unable to sit in regular vehicle. Follow up with Urology Dr. Lester Prescriptions: No Action guaifenesin 600 mg tablet extended release 12hr 1,200 mg PO BID Qty: 30 0RF Rx Instructions: Max 4 tabs per day azithromycin [Zithromax Z-Milton] 250 mg tablet See Rx Instructions PO .COMPLEX Qty: 6 0RF Rx Instructions: For 250 mg dose pack: take 500 mg today (day 1), then 250 mg for 4 days (days 2-5) PO Referrals: Scott Kebede DO [Primary Care Provider] - Derik Lester MD [Physician] - Stand Alone Forms: Patient Portal/API
--- NOTE | 2023-10-05 20:27 | PC.NURSE ---
pt has bone and prostate ca that has metastasized and is having urinary retention
[2023-10-05] MEDS: LIDOCAINE 2% (GLYDO) 6 ML GEL TOP ×2 (20:32→20:55)
--- NOTE | 2023-10-05 23:00 | PC.NURSE ---
placed per Dr Lester, Dr Lester here for cystoscopy and harrison catheter was placed in patient using the cystoscope and wire, per Dr Lester for catheter to be changed a wire will need to be used d/t a step down in the prostate, catheter draining jennifer colored clear urine
--- NOTE | 2023-10-05 23:48 | P.CONS_ITS ---
History of Present Illness Consult details Date Patient Seen: 10/05/23 Time Patient Seen: 23:48 Chief complaint: Urinary retention/prostate cancer Reason for consult: Prostate cancer on hospice reported decreased urine output unable to cath Requesting provider: Zachariah Jones Narrative: This is an 78-year-old male who lives on [facility] has prostate cancer and is on hospice; placed there in the last few days by report. Reported to have had decreased urine output and the hospice care team having been able to pass a catheter had him transported by helicopter to the emergency department here at [facility]. During the flight patient did urinate he reports that he ?wet his pants?. Once here there were several attempts to pass a catheter which met with failure. Patient's bladder volume was reported to be in the 370 range by bladder scan here in the emergency department. Apparently the patient did void a little here. Patient reports being in no discomfort. He feels that he has been voiding according to his normal voiding pattern. Patient has a history of Transurethral resection of the prostate ?many years ago? and he reports that this did the trick and he has been able to urinate since without difficulty. He denies slowing of his urinary stream and was up until today voiding according to his normal pattern. His fluid intake and the possibility of dehydration is unknown. I was called by the emergency room physician who new little to nothing about the patient's prostate cancer history, surgical history and or his need for a catheter. Through the nursing staff and review of his posted [facility] provider notes I was able to discern that he is taken care of by Dr. Lima who is a oncologist and is who placed him on hospice. Unfortunately the patient has little information on our system regarding his most recent and distant history. But he is a fairly good historian and was able to determine that in about 2018 he was found to have metastatic disease of unknown origin. The workup included a PSA which was in the 6700 range. Apparently he underwent prostate biopsy and confirmed the diagnosis of prostate cancer. Was seen by Oncology and offered treatment initially he tried alternative therapies but then [facility] and was started on androgen deprivation therapy. He was then subsequently at some point transferred to the care of the oncologist Dr. Ramses galloway at [facility] and according to the patient was continued on androgen deprivation therapy. At this point it is unclear if this is been stopped but he was placed on hospice in the past few days by his oncologist. His current PSA status is unknown he is by report having or has widespread metastatic disease. I discussed with the patient the benefits and down side of having a Brooks catheter placed, flexible cystoscopy with over the wire placement of catheter to facilitate this the procedure, risks, alternatives the risk of protracted bleeding, infection, injury to surrounding structures and the need for a Brooks catheter going forward. Patient wishes to proceed with flexible cystoscopy and potential catheter placement which was done. At that procedure a posterior shelf was noted with evidence of trauma likely from the attempted catheter placements. With the flexible cystoscope was easily able to negotiate into the bladder up and over the shelf place a wire and Brooks catheter which is an 18 Argentine Afognak tip catheter; this will allow easy catheter ticket dispenser changer a wire which should be done every 30 days moving forward. The procedure findings her dictated in his separate portion of the note. Procedure note: Flexible cystoscopy and over wire catheterization note: Surgeon: Trevon AMADOR Anesthetic: 2% viscous lidocaine per urethra Indications: As noted in the history of present illness patient appeared did not be able to void had difficult time with catheterization and to determine his anatomy flexible cystoscopy with possible over the wire catheter placement was elected. Procedure in detail: After a lengthy discussion regarding the procedure informed consent was obtained verbally patient voices understanding of the risks benefits and hope for outcomes of the procedure. He was then prepped with Hibiclens prep 2% viscous lidocaine instilled within the urethra and time allowed for the block to set up. The flexible cystoscope was then passed th rough the urethra the false passage was observed with some clot anterior to this was in relatively patent channel with some regrowth and bladder neck contracture. I was however able to easily negotiate into the bladder coil and ultra stiff wire in the bladder after brief cystoscopy which showed no significant abnormality. With the wire coiled in place the scope was backed out and the 18 Argentine Councill tip catheter was easily passed over the wire into the bladder with the balloon was filled with 10 cc of sterile water in the catheter was placed to gravity drainage obtaining jennifer colored urine without blood. The patient was observed to have no active bleeding. The patient tolerated the procedure well there were no complications. The catheter was placed to a drainage bag and the patient went onto disposition per the emergency department. Findings: Urethral meatus is normal urethra is normal along its length sphincter as well coapted. The prostate showed evidence of resection and a false passage posteriorly that had clot in it. As the scope was deflected upward a channel was easily discerned and the scope passed easily into the bladder without restriction. The bladder exhibited pale mucosa no tumor or other abnormality severe trabeculation and cellules. Impression: Patient on hospice for metastatic prostate cancer specific details related to this are not available. Patient does have a posterior shelf and false passage. He is however set up with a Councill tip catheter which should easily allow the catheter to be exchanged over a wire placing another Councill tip catheter. Plan: Catheter should be changed every 30 days over a wire. Disposition per the emergency department and the patient's oncologist and hospice care team. Meds Home Medications and Allergies Home Medications Medication Instructions Recorded Confirmed Type azithromycin 250 mg tablet See Rx Instructions PO .COMPLEX #6 01/28/22 01/28/22 Rx (Zithromax Z-Milton) tabs guaifenesin 600 mg tablet, 1,200 mg (2 x 600 mg) PO BID #30 01/28/22 01/28/22 Rx extended release 12 hr tabs Allergies Allergy/AdvReac Type Severity Reaction Status Date / Time No Known Drug Allergies Allergy Verified 03/18/20 18:39 Review of Systems Review of Systems ROS: Yes All systems reviewed with the patient and are negative except as otherwise documented (And problem list) Exam Vital Signs (past 8 hours): - 10/05/23 19:45 Temperature 97.1 F L Pulse Rate 78 Respiratory Rate 18 Blood Pressure 140/65 Pulse Oximetry 98 Oxygen Delivery Method Room Air Oxygen Delivery Method Room Air Narrative Exam Narrative: General: This is a pale, awake, alert, oriented, somewhat edematous 78-year-old male who appears in no acute distress Abdomen: Soft, obese, nontender Genitourinary exam: Circumcised male, normal meatus, normal penis, palpably normal testes, normal scrotum PFSH Medical History (Updated 10/06/23 @ 00:04 by Derik Lester MD) Bladder neck contracture Decreased urine output Difficult Brooks catheter placement Prostate cancer metastatic to bone Basal cell carcinoma Prostate cancer Hypertension Well adult exam Prostate cancer Hypertension Pulmonary nodules/lesions, multiple Surgical History (Updated 08/31/17 @ 12:39 by Ran Hope MD) H/O hernia repair Hx of laminectomy Hx of appendectomy Family History (Updated 03/21/21 @ 14:11 by Scott Kebede DO) Mother Cancer Father Dementia Tobacco & Substance Use Smoking Status: Never smoker Assessment & Plan Assessment and plan (1) Prostate cancer: Status: Acute (2) Prostate cancer metastatic to bone: Status: Acute (3) Difficult Brooks catheter placement: Status: Acute (4) Decreased urine output: Status: Acute (5) Bladder neck contracture: Status: Acute Plan Assessment and plan: Bladder neck contracture difficult catheterization secondary to posterior shelf. The bladder neck contracture is widely patent and easily accepted the scope and catheter but given the patient's current situation on hospice and having to be flown in it was felt that placing a Brooks catheter would be in the patient's best interest he was in agreement and received some degree of comfort once it was placed. We were in receipt of jennifer urine no blood. The bladder looked normal. The catheter was set up such that it could easily be exchanged over a wire given that it has a Councill tip catheter. Disposition per the patient's oncologist hospice care team an emergency room physician. The catheter should be changed every 30 days. Time-Based Coding :: [TOTAL MINUTES] spent with patient and on the chart (including review of chart, obtaining history, exam, reviewing outside data, placing orders, documenting exam and treatment plan, and counseling patient) on [DATE].
[2023-10-06] MEDS: LIDOCAINE 2% (GLYDO) 6 ML GEL 18 ML TOP (00:36)
[2023-10-06 06:09] VITALS: BP 148/67; PULSE 95; RESP 18; O2SAT 94
== END 2023-10-06 06:22 | disposition home or self-care (01) ==
PROVIDERS: Emergency Provider Emergency Medicine; Family Provider Family Medicine; PCP Family Medicine
DX: R33.9 Retention of urine, unspecified (principal); C61 Malignant neoplasm of prostate; C79.51 Secondary malignant neoplasm of bone; N32.0 Bladder-neck obstruction
CPT/HCPCS: 51702; 51798; 99283

== ENCOUNTER 2023-12-02 16:07 | Emergency (ER) | payer MEDICARE, SELFPAY ==
[2023-12-02] VITALS (19 sets, daily range): BP systolic 109–150; BP diastolic 58–74; PULSE 44–96; RESP 14–18; O2SAT 86–99; BMI 26.4
--- NOTE | 2023-12-02 17:12 | PC.NURSE ---
@1712, this RNs first interaction with patient. Pt is in [place] bed, on the monitor BP 111/60, HR 86, 94%RA.
--- NOTE | 2023-12-02 17:22 | PC.NURSE ---
Patient reports he has prostate cancer that had metastasized to his bones and lungs. He is on hospice x 3 mos. Stpooed all tx 3 mos ago. Was seen at [facility] 2-3 mos ago for a wire guided catheter procedure. Hospice nurse advises this RN than [facility] sent records to [facility] earlier this afternoon, with instructions for wire guided cath placement. Physician advised at 1730.
--- NOTE | 2023-12-02 18:06 | PC.NURSE ---
@1746: RN and RT at bedside, pt placed on oximask, pt was 87% yoly ABRAHAM 3L w/ oximask. AOx4 GCS 15
--- NOTE | 2023-12-02 18:11 | PC.NURSE ---
Hospice Nurse: Colette [phone]. Please contact Colette with updates and questions re: patient's care.
--- NOTE | 2023-12-02 18:12 | PC.NURSE ---
This RN attempted to flush pt catheter numerous times. Catheter appears to be blocked. Hospice nurse reports she spent 1.5 hrs trying to flush pt's catheter this morning, at his home on [facility], before having pt flown via helicopter to [facility]. maintenance mechanic technician states [facility] placed this catheter 3 mos ago with the assistance of an [facility] Urologist, states it was a wire guided procedure. maintenance mechanic technician states this catheter has been in place since that procedure. Bladder Scan shows 622ML
--- NOTE | 2023-12-02 18:18 | ED_ITS ---
HPI - General Adult General Chief complaint: Urogenital-Male Stated complaint: Wire Cath placement needed Time Seen by Provider: 12/02/23 18:12 Source: EMS Mode of arrival: EMS History of Present Illness HPI narrative: 78-year-old gentleman history of metastatic prostate cancer has a Brooks catheter that was placed with cystoscopy assistance over a wire with a Councill tip that is now blocked. All notes from Urology with prior clinical indications have said that the catheter needs to be changed over a wire and recommendation is that Urology be at bedside. Because he is a hospice patient would like to provide as much comfort as possible no additional workup is going to be indicated at this time. I have spoken with Dr. Saini who will come into replace the catheter. Related Data Previous Rx's Medication Instructions Recorded azithromycin 250 mg tablet See Rx Instructions PO .COMPLEX #6 01/28/22 (Zithromax Z-Milton) tabs guaifenesin 600 mg tablet, 1,200 mg (2 x 600 mg) PO BID #30 01/28/22 extended release 12 hr tabs Allergies Allergy/AdvReac Type Severity Reaction Status Date / Time No Known Drug Allergies Allergy Verified 12/02/23 16:07 Patient History Medical History (Updated 12/02/23 @ 18:41 by Alexandra Montoya MD) Bladder neck contracture Decreased urine output Difficult Brooks catheter placement Prostate cancer metastatic to bone Basal cell carcinoma Prostate cancer Hypertension Well adult exam Prostate cancer Hypertension Pulmonary nodules/lesions, multiple Surgical History (Updated 08/31/17 @ 12:39 by Ran Hope MD) H/O hernia repair Hx of laminectomy Hx of appendectomy Family History (Updated 03/21/21 @ 14:11 by Scott Kebede DO) Mother Cancer Father Dementia Social History Smoking Status: Never smoker Smoking Status: Never smoker alcohol intake frequency: 0-2 drinks per day Substance Use Type: does not use Exam Initial Vital Signs Initial Vital Signs: Vital Signs Pulse Rate 83 12/02/23 16:18 Respiratory Rate 14 12/02/23 16:18 Blood Pressure 119/68 12/02/23 16:18 Pulse Oximetry 90 L 12/02/23 16:18 Oxygen Delivery Method Room Air 12/02/23 16:18 General: Chronically ill-appearing, on oxygen Respiratory: Able to speak in full sentences, no obvious respiratory distress Skin: No obvious rashes, warm and dry Neurologic: Grossly intact no obvious asymmetries or abnormalities Extremities: Significant lower extremity edema Psych: appropriate insight and affect, cooperative : Catheter is blocked Course Vital Signs Vital signs: Vital Signs - 8 hr 12/02/23 16:18 12/02/23 17:44 12/02/23 17:46 Pulse Rate 83 87 44 L Respiratory Rate 14 18 Blood Pressure 119/68 150/74 H Pulse Oximetry 90 L 87 L 98 Oxygen Delivery Method Room Air Room Air Oximask Oxygen Flow Rate 12/02/23 18:08 12/02/23 18:09 Pulse Rate Respiratory Rate Blood Pressure Pulse Oximetry 86 L 98 Oxygen Delivery Method Oximask Oximask Oxygen Flow Rate 3 5 Medical Decision Making MDM Narrative Medical decision making narrative: 78-year-old gentleman on hospice secondary to metastatic prostate cancer with recurrent issues with his catheter becoming blocked needing changing over a wire due to prior complications. Our urologist, Dr. Saini was able to replace the catheter over the wire in the emergency department. He was at bedside and immediately gloved for catheter slubber frame changer a wire which went without difficulty. Patient will give dose of post catheter replacement levofloxacin. We did call for EMS transport to try to catch the [address] back to [facility] to try to get him back home this evening No additional workup was indication required with today's visit Discharge Plan Departure Patient Disposition: Home Clinical Impression: Prostate cancer, Hospice care patient Brooks catheter problem Qualifiers: Encounter type: initial encounter Qualified Code(s): T83.9XXA - Unspecified complication of genitourinary prosthetic device, implant and graft, initial encounter Instructions: How to Care for Your Brooks Catheter -- Male Activity Restrictions/Additional Instructions: We were able to change her catheter out for you today We were also able to arrange for ambulance ride for the last very this evening so you do not need to spend the entire evening in our emergency department You are given a single dose of levofloxacin to make sure that we did not cause any infection risk with the catheter change. Please continue all previous recommendations and care for your Brooks catheter I wish you the best Prescriptions: No Action guaifenesin 600 mg tablet extended release 12hr 1,200 mg PO BID Qty: 30 0RF Rx Instructions: Max 4 tabs per day azithromycin [Zithromax Z-Milton] 250 mg tablet See Rx Instructions PO .COMPLEX Qty: 6 0RF Rx Instructions: For 250 mg dose pack: take 500 mg today (day 1), then 250 mg for 4 days (days 2-5) PO Referrals: Scott Kebede DO [Primary Care Provider] - Stand Alone Forms: Patient Portal/API
--- NOTE | 2023-12-02 19:26 | PM.CN ---
History of Present Illness Consult details Date Patient Seen: 12/02/23 Time Patient Seen: 19:00 Chief complaint: Catheter not draining Narrative: 78 y/o M brought into ED for evaluation of a clogged and no longer draining harrison catheter. Briefly, he has very little records regarding his Urologic history in our EMR. Dr. Lester originally placed the harrison catheter in late September 2023 for urinary retention. The patient was reportedly diagnosed with prostate cancer following a TRUS prostate biopsy that was performed due to a PSA in the 6700 range (all of this is from patient and/or Dr. Lester's previous note). He was supposedly started on ADT as his main treatment by his Medical Oncologist and then was recently placed on hospice care within the last few months. His current PSA, prostate cancer diagnosis and possible metastatic disease is all unknown, however, Dr. Lester did place an 18Fr choctaw tip catheter during his ED visit in late September 2023. Meds Home Medications and Allergies Home Medications Medication Instructions Recorded Confirmed Type azithromycin 250 mg tablet See Rx Instructions PO .COMPLEX #6 01/28/22 01/28/22 Rx (Zithromax Z-Milton) tabs guaifenesin 600 mg tablet, 1,200 mg (2 x 600 mg) PO BID #30 01/28/22 01/28/22 Rx extended release 12 hr tabs Allergies Allergy/AdvReac Type Severity Reaction Status Date / Time No Known Drug Allergies Allergy Verified 12/02/23 16:07 Review of Systems Review of Systems Narrative: CONSTITUTIONAL: Denies weight loss, fevers, chills. HEENT: Denies change in vision, hearing. RESP: Denies SOB, cough. CV: Denies palpations, CP. GI: Denies abodminal pain, nausea, vomiting, diarrhea. : Denies dysuria, hematuria. MSK: Denies myalgia, joint pain. SKIN: Denies rash, pruritus. NEURO: Denies headache, syncope. PSYCH: Denies recent change in mood, anxiety, depression. Exam Vital Signs (past 8 hours): - 12/02/23 16:18 12/02/23 17:44 12/02/23 17:46 Pulse Rate 83 87 44 L Respiratory Rate 14 18 Blood Pressure 119/68 150/74 H Pulse Oximetry 90 L 87 L 98 Oxygen Delivery Method Room Air Room Air Oximask Oxygen Flow Rate 12/02/23 18:08 12/02/23 18:09 Pulse Rate Respiratory Rate Blood Pressure Pulse Oximetry 86 L 98 Oxygen Delivery Method Oximask Oximask Oxygen Flow Rate 3 5 Oxygen Delivery Method Oximask Oxygen Flow Rate 5 Narrative Exam Narrative: GEN: Alert and oriented X3. No acute distress. Well-nourished. EYES: PERRLA, EOMI. HENT: Moist mucus membranes, no scleral icterus, normal neck ROM. RESP: Unlabored breathing, equal rise and fall of chest bilaterally, no cyanosis appreciated. CV: No peripheral edema, unremarkable heart rate. ABD: Soft, non-tender, non-distended, no palpable masses. : Generalized edema appreciated, unable to visualize glans penis and/or urethral meatus. Catheter bag disconnected from harrison catheter and PTFE guidewire fed through harrison catheter and into bladder. Catheter balloon was deflated and catheter was removed without difficulty. New 18Fr choctaw tip catheter was easily advanced over the guidewire and into the bladder with immediate drainage of dark yellow and intermittently red urine. 10cc of sterile water was utilized for balloon insufflation. EXT: No edema, clubbing or cyanosis. SKIN: No rashes or lesions. NEURO: No focal neurologic deficits, CN II-XII grossly intact. PSYCH: Cooperative, appropriate mood and affect. [facility] Medical History Bladder neck contracture Decreased urine output Difficult Harrison catheter placement Prostate cancer metastatic to bone Basal cell carcinoma Prostate cancer Hypertension Well adult exam Prostate cancer Hypertension Pulmonary nodules/lesions, multiple Surgical History H/O hernia repair Hx of laminectomy Hx of appendectomy Family History Mother Cancer Father Dementia Tobacco & Substance Use Smoking Status: Never smoker Assessment & Plan Assessment and plan (1) Prostate cancer: Status: Acute Plan: 78 y/o M w/ h/o prostate cancer that is reportedly metastatic (do not have any record of this) as well as a bladder neck contracture who continues to suffer from urinary retention that is managed with an indwelling harrison catheter. This was easily exchanged today in the ED. He has a new 18Fr choctaw tip catheter in place. Should this stop draining, would recommend another exchange over a guidewire. Should he need long-term Urologic care, please have him return to see me in the Urology clinic. (2) Harrison catheter problem: Qualifiers: Encounter type: initial encounter Qualified Code(s): T83.9XXA - Unspecified complication of genitourinary prosthetic device, implant and graft, initial encounter Status: Acute (3) Hospice care patient: Status: Acute (4) Bladder neck contracture: Status: Acute Time-Based Coding :: [TOTAL MINUTES] spent with patient and on the chart (including review of chart, obtaining history, exam, reviewing outside data, placing orders, documenting exam and treatment plan, and counseling patient) on [DATE]. PROFEE Charge Codes Inpatient or Observation consultation: [id number]
[2023-12-02] MEDS: levoFLOXacin 250 MG TABLET 750 MG PO (19:51)
[2023-12-02] MEDS: OXYCODONE IR 5 MG TABLET 20 MG PO (19:51)
--- NOTE | 2023-12-02 21:00 | PC.NURSE ---
Addendum entered by Gisella Carbajal R.N. 12/02/23 21:07: pt aware and states undersanding and will inform family Original Note: Received call from [facility], stating [place] [id number], [place] could [place]chedule for morning.
[2023-12-03 01:49] VITALS: BP 120/64; PULSE 82; RESP 18; TEMP 36.5; O2SAT 94
[2023-12-03 05:58] VITALS: BP 110/67; PULSE 103; RESP 18; TEMP 37.4; O2SAT 95
== END 2023-12-03 06:53 | disposition home or self-care (01) ==
PROVIDERS: Emergency Provider Emergency Medicine; Family Provider Family Medicine; PCP Family Medicine
DX: T83.9XXA Unspecified complication of genitourinary prosthetic device, implant and graft, initial encounter (principal); C61 Malignant neoplasm of prostate; Z51.5 Encounter for palliative care; N32.0 Bladder-neck obstruction
CPT/HCPCS: 99283